=== PATIENT | female | born 1945 | race Caucasian/White ===

== ENCOUNTER 2018-04-17 15:20 | Emergency (ER) | payer OTHER ==
[2018-04-17 15:39] VITALS: BMI 26.7
--- NOTE | 2018-04-17 17:52 | PDOC ---
History of Present Illness - General History Source: Patient Exam Limitations: No Limitations - History of Present Illness Initial Comments: 04/17/18 18:10 The patient is a 72 year old female, with a significant past medical history of Afib, HTN, and Parkinsons, who presents to the emergency department with, hematuria and urgency. Patient notes seeing her PCP Tuesday at which time she had urgency and urinary incontinence and was given urology follow-up. Patient notes her hematuria has gotten worse, prompting her arrival. She denies recent fevers, chills, headache or dizziness. She denies recent nausea, vomit, diarrhea or constipation. She denies recent chest pain or shortness of breath. Allergies: Penicillins. Primary Care Physician: Dr. Keshawn Rush <Freida Mckeon - Last Filed: 04/17/18 18:09> <Mala Liao - Last Filed: 04/17/18 20:16> - General Chief Complaint: Rectal Bleed Stated Complaint: VAGINAL BLEEDING Time Seen by Provider: 04/17/18 17:35 Past History <Freida Mckeon - Last Filed: 04/17/18 18:09> - Past Medical History Cardiac Disorders: Yes (IRREGULAR HEART BEAT) COPD: No GI Disorders: Yes (constipation) HTN: Yes Lung CA: No - Surgical History Cardiac Surgery: No (ablation for A-fib 06/11/15) - Immunization History Immunization Up to Date: Yes - Suicide/Smoking/Psychosocial Hx Smoking History: Never smoked Have you smoked in the past 12 months: No Information on smoking cessation initiated: No Hx Alcohol Use: No Drug/Substance Use Hx: No Substance Use Type: None Hx Substance Use Treatment: No <Mala Liao - Last Filed: 04/17/18 20:16> - Past Medical History Allergies/Adverse Reactions: Allergies Allergy/AdvReac Type Severity Reaction Status Date / Time No Known Allergies Allergy Verified 07/20/15 14:45 Home Medications: Ambulatory Orders Metoprolol Tartrate [Lopressor] 50 mg PO BID #28 tablet 05/17/14 Rivaroxaban [Xarelto -] 20 mg PO DAILY #14 tablet 05/17/14 Flecainide Acetate [Flecainide Acetate -] 50 mg PO BID 03/27/15 Nifedipine [Nifedical Xl] 60 mg PO DAILY 03/27/15 Omeprazole [Prilosec] 20 mg PO BID 06/15/15 Phenazopyridine HCl [Pyridium -] 100 mg PO TID #6 tablet 04/17/18 Sulfamethoxazole/Trimethoprim [Bactrim Ds -] 1 tab PO BID #14 tablet 04/17/18 Abd/GI Specific PMHX - Complaint Specific PMHX Colitis: No Diverticulitis: No <Sanju Liaoa Emely - Last Filed: 04/17/18 20:16> Review of Systems - Review of Systems Able to Perform ROS?: Yes Comments:: 04/17/18 18:10 CONSTITUTIONAL: Absent: fever, no chills, no fatigue EYES: Absent: visual changes ENT: Absent: ear pain, no sore throat CARDIOVASCULAR: Absent: chest pain, no palpitations RESPIRATORY: Absent: cough, no SOB GI: Absent: abdominal pain, no nausea, no vomiting, no constipation, no diarrhea GENITOURINARY: Present: Hematuria. Suprapubic discomfort. MUSKULOSKELETAL: Absent: back pain, no arthralgia, no myalgia SKIN: Absent: rash NEURO: Absent: headache All Other Systems: Reviewed and Negative <Freida Mckeon - Last Filed: 04/17/18 18:09> *Physical Exam - Vital Signs Last Vital Signs Temp Pulse Resp BP Pulse Ox 98.1 F 73 16 174/82 H 96 04/17/18 15:37 04/17/18 15:37 04/17/18 15:37 04/17/18 15:37 04/17/18 15:37 - Physical Exam Comments: 04/17/18 18:10 GENERAL: Well developed, well nourished. Awake and alert. No acute distress. HEENT: Normocephalic, atraumatic. PERRLA, EOMI. No conjunctival pallor. Sclera are non- icteric. Moist mucous membranes. Oropharynx is clear. NECK: Supple. Full ROM. No JVD. Carotid pulses 2+ and symmetric, without bruits. No thyromegaly. No lymphadenopathy. +CARDIOVASCULAR: Irregularly irregular. No murmurs, rubs, or gallops. Distal pulses are 2+ and symmetric. PULMONARY: No evidence of respiratory distress. Lungs clear to auscultation bilaterally. No wheezing, rales or rhonchi. +ABDOMINAL: Mild suprapubic discomfort Soft. Non-distended. No rebound or guarding. No organomegaly. Normoactive bowel sounds. MUSCULOSKELETAL Normal range of motion at all joints. No bony deformities or tenderness. No CVA tenderness. EXTREMITIES: No cyanosis. No clubbing. No edema. No calf tenderness. SKIN: Warm and dry. Normal capillary refill. No rashes. No jaundice. NEUROLOGICAL: Alert, awake, appropriate. Cranial nerves 2-12 intact. No deficits to light touch and temperature in face, upper extremities and lower extremities. No motor deficits in the in face, upper extremities and lower extremities. Normoreflexic in the upper and lower extremities. Normal speech. Toes are down- going bilaterally. Gait is normal without ataxia. PSYCHIATRIC: Cooperative. Good eye contact. Appropriate mood and affect. <Freida Mckeon - Last Filed: 04/17/18 18:09> - Vital Signs Last Vital Signs Temp Pulse Resp BP Pulse Ox 98.1 F 73 16 174/82 H 96 04/17/18 15:37 04/17/18 15:37 04/17/18 15:37 04/17/18 15:37 04/17/18 15:37 <Mala Liao - Last Filed: 04/17/18 20:16> Moderate Sedation - Procedure Monitoring Vital Signs: Procedure Monitoring Vital Signs Temperature 98.1 F 04/17/18 15:37 Pulse Rate 73 04/17/18 15:37 Respiratory Rate 16 04/17/18 15:37 Blood Pressure 174/82 H 04/17/18 15:37 O2 Sat by Pulse Oximetry (%) 96 04/17/18 15:37 <Freida Mckeon - Last Filed: 04/17/18 18:09> - Procedure Monitoring Vital Signs: Procedure Monitoring Vital Signs Temperature 98.1 F 04/17/18 15:37 Pulse Rate 73 04/17/18 15:37 Respiratory Rate 16 04/17/18 15:37 Blood Pressure 174/82 H 04/17/18 15:37 O2 Sat by Pulse Oximetry (%) 96 04/17/18 15:37 <Mala Liao - Last Filed: 04/17/18 20:16> ED Treatment Course - LABORATORY CBC & Chemistry Diagram: 04/17/18 18:27 04/17/18 18:27 <Mala Liao - Last Filed: 04/17/18 20:16> Medical Decision Making - Medical Decision Making 04/17/18 19:09 this 72 yo female has had some intermittent dysuria,suprapubic discomfort recently and noted some blood in urine -she already saw her PCP on Tuesday for this and was referred to a urologist but her symptoms bothered d her and she came here 04/17/18 19:17 no fever,no vomiting reviewed the labs and she does not have pyelonephritis, normal cbc and chemistry pt given pyrdium and bactrim and told to keep her urology appt <Mala Liao - Last Filed: 04/17/18 20:16> *DC/Admit/Observation/Transfer - Attestations Scribe Attestion: 04/17/18 18:11 Documentation prepared by Freida Mckeon, acting as medical photographer for Mala Liao MD. <Freida Mckeon - Last Filed: 04/17/18 18:09> <Mala Liao - Last Filed: 04/17/18 20:16> Diagnosis at time of Disposition: Dysuria Hematuria Qualifiers: Hematuria type: unspecified type Qualified Code(s): R31.9 - Hematuria, unspecified - Discharge Dispostion Disposition: HOME Condition at time of disposition: Stable - Prescriptions Prescriptions: Phenazopyridine HCl [Pyridium -] 100 mg PO TID #6 tablet Sulfamethoxazole/Trimethoprim [Bactrim Ds -] 1 tab PO BID #14 tablet - Referrals Referrals: Keshawn Rush MD, MD [Primary Care Provider] - - Patient Instructions Printed Discharge Instructions: DI for Hematuria, DI for Dysuria -- Adult Additional Instructions: 1. pick up operator your medications at [facility] at [facility] 2. PLEASE KEEP YOUR APPOINTMENT WITH THE UROLOGIST YOU HAD BEEN REFERRED TO - Post Discharge Activity
[2018-04-17 18:32] LABS: URINE APPEARANCE CLEAR; URINE BILIRUBIN NEGATIVE (<2.0 mg/dL); URINE COLOR YELLOW; URINE GLUCOSE (UA) NEGATIVE (NEGATIVE); URINE KETONE NEGATIVE (NEGATIVE); URINE LEUK ESTERASE NEGATIVE (NEGATIVE); URINE NITRITE NEGATIVE (NEGATIVE); URINE PROTEIN NEGATIVE (NEGATIVE); URINE UROBILINOGEN NEGATIVE mg/dL (0.2-1.0)
[2018-04-17 18:38] LABS: URINE MUCUS RARE
[2018-04-17 18:53] LABS: BASO % 0.6 % (0-2.0); HEMATOCRIT 39.8 % (32.4-45.2); HEMOGLOBIN 13.7 GM/dL (10.7-15.3); LYMPH % 29.6 % (8-40); MCH 31.1 pg (25.7-33.7); MCHC 34.3 g/dl (32.0-36.0); MEAN CELL VOLUME 90.5 fl (80-96); MEAN PLT VOLUME 9.9 fl (7.5-11.1); MONO % 7.8 % (3.8-10.2); PLATELET COUNT 187 K/MM3 (134-434); RDW 13.1 % (11.6-15.6); WHITE BLOOD COUNT 5.3 K/mm3 (4.0-10.0)
[2018-04-17 19:05] LABS: INR 1.36 (0.83-1.09); PROTHROMBIN TIME (PATIENT) 16.1 SEC (9.7-13.0)
--- NOTE | 2018-04-17 19:16 | PDOC ---
History of Present Illness - General Chief Complaint: Rectal Bleed Stated Complaint: VAGINAL BLEEDING Time Seen by Provider: 04/17/18 17:35 Past History - Past Medical History Allergies/Adverse Reactions: Allergies Allergy/AdvReac Type Severity Reaction Status Date / Time No Known Allergies Allergy Verified 07/20/15 14:45 Home Medications: Ambulatory Orders Metoprolol Tartrate [Lopressor] 50 mg PO BID #28 tablet 05/17/14 Rivaroxaban [Xarelto -] 20 mg PO DAILY #14 tablet 05/17/14 Flecainide Acetate [Flecainide Acetate -] 50 mg PO BID 03/27/15 Nifedipine [Nifedical Xl] 60 mg PO DAILY 03/27/15 Omeprazole [Prilosec] 20 mg PO BID 06/15/15 Cardiac Disorders: Yes (IRREGULAR HEART BEAT) COPD: No GI Disorders: Yes (constipation) HTN: Yes Lung CA: No - Surgical History Cardiac Surgery: No (ablation for A-fib 06/11/15) - Immunization History Immunization Up to Date: Yes - Suicide/Smoking/Psychosocial Hx Smoking History: Never smoked Have you smoked in the past 12 months: No Information on smoking cessation initiated: No Hx Alcohol Use: No Drug/Substance Use Hx: No Substance Use Type: None Hx Substance Use Treatment: No Abd/GI Specific PMHX - Complaint Specific PMHX Colitis: No Diverticulitis: No *Physical Exam - Vital Signs Last Vital Signs Temp Pulse Resp BP Pulse Ox 98.1 F 73 16 174/82 H 96 04/17/18 15:37 04/17/18 15:37 04/17/18 15:37 04/17/18 15:37 04/17/18 15:37 Moderate Sedation - Procedure Monitoring Vital Signs: Procedure Monitoring Vital Signs Temperature 98.1 F 04/17/18 15:37 Pulse Rate 73 04/17/18 15:37 Respiratory Rate 16 04/17/18 15:37 Blood Pressure 174/82 H 04/17/18 15:37 O2 Sat by Pulse Oximetry (%) 96 04/17/18 15:37 ED Treatment Course - LABORATORY CBC & Chemistry Diagram: 04/17/18 18:27 04/17/18 18:27 - ADDITIONAL ORDERS Additional order review: Laboratory Results 04/17/18 04/17/18 18:03 18:00 PT with INR 16.10 H INR 1.36 H Urine Color Yellow Urine Appearance Clear Urine pH 7.0 Ur Specific [place] 1.014 Urine Protein Negative Urine Glucose (UA) Negative Urine Ketones Negative Urine Blood 1+ H Urine Nitrite Negative Urine Bilirubin Negative Urine Urobilinogen Negative Ur Leukocyte Esterase Negative Urine WBC (Auto) 3 Urine RBC (Auto) 3 Urine Mucus Rare 04/17/18 18:27 RBC 4.40 MCV 90.5 MCHC 34.3 RDW 13.1 MPV 9.9 Neutrophils % 62.0 Lymphocytes % 29.6 D Monocytes % 7.8 Eosinophils % 0.0 Basophils % 0.6 *DC/Admit/Observation/Transfer - Discharge Dispostion Condition at time of disposition: Stable - Referrals Referrals: Keshawn Rush MD, MD [Primary Care Provider] - - Patient Instructions - Post Discharge Activity
[2018-04-17 19:22] LABS: ALBUMIN 3.7 g/dl (3.4-5.0); ALK PHOS 93 U/L (45-117); ANION GAP 7 MMOL/L (8-16); BILIRUBIN,TOTAL 0.5 mg/dL (0.2-1); BLOOD UREA NITROGEN 17 mg/dL (7-18); CALCIUM 8.9 mg/dL (8.5-10.1); CHLORIDE 108 mmol/L (98-107); CO2 28 mmol/L (21-32); CREATININE 0.8 mg/dL (0.55-1.3); GLUCOSE,RANDOM 97 mg/dL (74-106); POTASSIUM 3.7 mmol/L (3.5-5.1); SGOT/AST 16 U/L (15-37); SGPT/ALT 14 U/L (13-61); SODIUM 143 mmol/L (136-145); TOT PROT 7.5 g/dl (6.4-8.2)
[2018-04-17] MEDS ORDERED: SULFAMETHOXAZOLE/TRIMETHOPRIM 800MG/160MG D.S. TABLET PO ONE (20:09)
[2018-04-17] MEDS ORDERED: PHENAZOPYRIDINE HCL 100 MG TABLET (FP) PO ONE (20:09)
[2018-04-17] MEDS ORDERED: SULFAMETHOXAZOLE/TRIMETHOPRIM 800MG/160MG D.S. TABLET ONE (20:13)
[2018-04-17] MEDS ORDERED: PHENAZOPYRIDINE HCL 100 MG TABLET (FP) ONE (20:13)
[2018-04-17 20:39] VITALS: BP 145/78; PULSE 88; TEMP 98.5
== END 2018-04-17 20:39 | disposition home or self-care (01) ==
LOC: JER 15:20
DX: R30.0 Dysuria (principal); R31.9 Hematuria, unspecified; I10 Essential (primary) hypertension; I48.91 Unspecified atrial fibrillation; Z79.01 Long term (current) use of anticoagulants; G20 Parkinson's disease
CPT/HCPCS: 36415; 80053; 81003; 81015; 85025; 85610; 86850; 86900; 86901; 87086; 99282-25

== ENCOUNTER 2018-06-22 12:10 | Day surgery (SDC) | payer OTHER ==
[2018-06-21 16:54] VITALS: BMI 27.3
--- NOTE | 2018-06-22 14:47 | HP ---
History & Physical Update - History History: No Change - Physical Physical: No Change - Assessment Assessment: No Change - Plan Plan: No Change
[2018-06-22] MEDS ORDERED: ACETAMINOPHEN 1000 MG/100 ML VIAL (NON FORMULARY) IVPB ONE (14:49)
[2018-06-22] MEDS ORDERED: LIDOCAINE HCL/PF 2% SDV 5ML VIAL ONE (14:59)
[2018-06-22] MEDS ORDERED: DEXTROSE 5%-0.45% SALINE 1,000 ML IV SCH (15:00)
[2018-06-22] MEDS ORDERED: ceFAZolin SODIUM 1 GM VIAL IVPB ONE (15:15)
[2018-06-22] MEDS ORDERED: oxyCODONE HCL 5 MG TABLET PO PRN ×2 (16:00)
[2018-06-22] MEDS ORDERED: LACTATED RINGERS SOLUTION 1,000 ML IV SCH (16:00)
[2018-06-22] MEDS ORDERED: ONDANSETRON 4 MG/2 ML VIAL IVPUSH PRN (16:00)
[2018-06-22] MEDS ORDERED: ACETAMINOPHEN INJECTION 100 ML IVPB ONE (16:10)
[2018-06-22] MEDS ORDERED: IBUPROFEN 800 MG/8 ML IJ IVPB SCH (18:00)
[2018-06-22 20:38] VITALS: TEMP 97.5
[2018-06-22 20:46] VITALS: BP 117/74; PULSE 58
--- NOTE | 2018-06-23 14:22 | OP ---
DATE OF OPERATION: 06/22/2018 PREOPERATIVE DIAGNOSIS: Urethral prolapse and stress urinary incontinence. POSTOPERATIVE DIAGNOSIS: Urethral prolapse and stress urinary incontinence. PROCEDURE: Excision of prolapsed urethra and repair and placement of suburethral sling and cystoscopy. ANESTHESIA: General. SPECIMEN: Urethra. DRAINS: Durant catheter. ESTIMATED BLOOD LOSS: 10 mL PREOPERATIVE INDICATIONS: Patient is a 72-year-old female with a 2-cm area of prolapsed urethra. She also has severe stress urinary incontinence. DESCRIPTION OF PROCEDURE: The patient was brought to the OR and placed on the table in a supine position. Given general anesthesia and IV antibiotics and placed in the modified lithotomy position. A time-out was performed. On exam, she had a 2-cm length of prolapsed urethra. Cystoscopy was performed. The bladder, otherwise, appeared to be okay. There also was a full 3-cm length of [place] urethra. Both ureteral orifices were visualized and cannulated. There was no involvement of the ureter or the ureteral orifice in the prolapsed urethra. The external portion of the urethra was excised and sent off for pathological diagnosis. The remaining urethral mucosa was re-opposed using 3-0 Vicryl suture with good control of hemostasis. A suburethral sling was then placed. Pitressin was injected into the vaginal mucosa underlying the middle third of the urethra. Incision was made, and the vaginal mucosa was sharply dissected off the periurethral tissues in a lateral fashion. Using trocars, a mini sling was placed under fingertip control from the vaginal incision to the obturator canal. No evidence of button holing of the vaginal mucosa was observed. Cystoscopy was again performed. No evidence of any perforation of the bladder. The sling was then placed flat against the urethra without tension, and the tensioning suture was removed. The vaginal mucosa was then closed using 2-0 Vicryl suture. Good hemostasis was observed. The Durant catheter was left in place. The patient was woken up. Jude [id number]
--- NOTE | 2018-06-27 13:30 | PATH ---
Surgical Pathology Report Patient Name: YOLANDA BERNARD [facility]. Rec. #: [id number] /Age/Gender: 1945 (Age: 72) / F Account: [id number] Location: [facility] Taken: 06/22/2018 Received: 06/23/2018 Reported: 06/27/2018 Physicians: Keshawn Escobar M.D. Specimen(s) Received URETHRA BIOPSY Clinical History Urethral caruncle, mixed incontinence Final Diagnosis URETHRAL PROLAPSE, BIOPSY: POLYPOID MUCOSAL TISSUE SHOWING MIXED HYPERPLASTIC UROTHELIAL AND SQUAMOUS LINING, OVERLYING EDEMATOUS, INFLAMED, AND VASCULAR STROMA. INVAGINATIONS OF UROTHELIUM IN THE STROMA SHOWING CYSTIC AND GLANDULAR LUMINAL SPACES WITH FOCAL INTESTINAL METAPLASIA. NEGATIVE FOR MALIGNANCY. Electronically Signed Gibran Freeman M.D. Gross Description Received in formalin labeled "urethra prolapse," are 2 gotti portions of mucosal tissue measuring 1.8 x 1.3 x 0.8 cm and 2.3 x 2.1 x 0.8 cm. [employer] sections are submitted in one cassette. /06/23/2018 [facility]06/23/2018
== END 2018-06-22 20:00 | disposition home or self-care (01) ==
LOC: JASU-SURG 12:10
PROVIDERS: ATTEND Urology
PROC: 0TSD0ZZ Reposition Urethra, Open Approach (ICD-10-PCS; principal; 2018-06-22 14:00)
PROC: 0TBD7ZZ Excision of Urethra, Via Natural or Artificial Opening (ICD-10-PCS; 2018-06-22 14:00)
DX: N39.46 Mixed incontinence (principal); N36.2 Urethral caruncle; N81.0 Urethrocele
CPT/HCPCS: 52224; 57288; C1771; 88305-TC; 94760; J0131

== ENCOUNTER 2020-04-03 15:32 | Inpatient (IN) | payer OTHER ==
[2020-04-03 17:18] LABS: HEMOGLOBIN 12.9 GM/dL (10.7-15.3)
[2020-04-03 17:27] LABS: BASO % 0.4 % (0-2.0); EOS % 0.1 % (0-4.5); HEMATOCRIT 37.4 % (32.4-45.2); LYMPH % 26.3 % (8-40); MCH 30.6 pg (25.7-33.7); MCHC 34.6 g/dl (32.0-36.0); MEAN CELL VOLUME 88.4 fl (80-96); MEAN PLT VOLUME 11.4 fl (7.5-11.1); MONO % 6.6 % (3.8-10.2); NEUT % 66.6 % (42.8-82.8); PLATELET COUNT 116 K/MM3 (134-434); RBC 4.23 M/mm3 (3.60-5.2); RDW 13.7 % (11.6-15.6); WHITE BLOOD COUNT 5.5 K/mm3 (4.0-10.0)
[2020-04-03 17:28] LABS: POTASSIUM 3.5 mmol/L (3.5-5.1)
[2020-04-03 17:30] LABS: CALCIUM 8.2 mg/dL (8.5-10.1)
[2020-04-03 17:31] LABS: ALBUMIN 3.3 g/dl (3.4-5.0)
[2020-04-03 17:34] LABS: CREATININE 0.8 mg/dL (0.55-1.3)
[2020-04-03 17:35] LABS: BILIRUBIN,TOTAL 0.8 mg/dL (0.2-1)
[2020-04-03 17:39] LABS: N-TERMINAL BNP 3040.9 pg/ml (5-125)
[2020-04-03] MEDS ORDERED: ASPIRIN 81 MG CHEWABLE TABLETS PO ONE (18:48)
[2020-04-03] MEDS ORDERED: CEFTRIAXONE 1,000 MG in DEXTROSE 5%-WATER - 50 ML IVPB ONE (19:00)
[2020-04-03] MEDS ORDERED: AZITHROMYCIN IVPB 500 MG in DEXTROSE 5%-WATER - 250 ML IVPB ONE (19:02)
[2020-04-03] MEDS ORDERED: AZITHROMYCIN IVPB 500 MG/250 ML BAG IVPB ONE (19:25)
[2020-04-03] MEDS ORDERED: CEFTRIAXONE 1 GM/50 ML BAG ONE (19:25)
[2020-04-03] MEDS ORDERED: ASPIRIN 81 MG CHEWABLE TABLETS ONE (19:25)
[2020-04-04 06:17] LABS: BASO % 0.5 % (0-2.0); HEMATOCRIT 37.7 % (32.4-45.2); HEMOGLOBIN 12.8 GM/dL (10.7-15.3); LYMPH % 32.2 % (8-40); MCH 30.4 pg (25.7-33.7); MEAN CELL VOLUME 89.2 fl (80-96); MONO % 7.3 % (3.8-10.2); PLATELET COUNT 107 K/MM3 (134-434); RBC 4.22 M/mm3 (3.60-5.2); RDW 13.3 % (11.6-15.6); WHITE BLOOD COUNT 4.2 K/mm3 (4.0-10.0)
[2020-04-04 06:36] LABS: POTASSIUM 3.7 mmol/L (3.5-5.1)
[2020-04-04 06:39] LABS: MAGNESIUM 1.4 mg/dL (1.8-2.4)
[2020-04-04 06:40] LABS: BLOOD UREA NITROGEN 11.8 mg/dL (7-18)
[2020-04-04 06:42] LABS: CREATININE 0.6 mg/dL (0.55-1.3)
[2020-04-04 06:43] LABS: PHOSPHOROUS 2.4 mg/dL (2.5-4.9); TOT PROT 6.4 g/dl (6.4-8.2)
[2020-04-04 06:45] LABS: BILIRUBIN,TOTAL 0.6 mg/dL (0.2-1)
[2020-04-04] MEDS ORDERED: CEFTRIAXONE 1 GM in DEXTROSE 5%-WATER - 50 ML IVPB ONE (10:00)
[2020-04-04] MEDS ORDERED: AZITHROMYCIN IVPB 500 MG/250 ML BAG IVPB SCH (10:00)
[2020-04-04] MEDS ORDERED: FUROSEMIDE 40 MG/4 ML INJECTABLE VIAL IVPUSH SCH (10:00)
[2020-04-04] MEDS ORDERED: METOPROLOL TARTRATE 50 MG TABLET (FP) ONE (10:14)
[2020-04-04] MEDS ORDERED: CEFTRIAXONE 1 GM/50 ML BAG ONE (10:15)
[2020-04-04] MEDS ORDERED: AZITHROMYCIN IVPB 500 MG/250 ML BAG IVPB ONE (10:15)
[2020-04-04] MEDS ORDERED: FUROSEMIDE 40 MG/4 ML INJECTABLE VIAL ONE (10:15)
[2020-04-04] MEDS: NIFEdipine E.R 60 MG TABLET PO SCH (10:38)
[2020-04-04] MEDS: METOPROLOL TARTRATE 50 MG TABLET (FP) PO SCH ×2 (10:38→22:11)
[2020-04-04] MEDS ORDERED: NAPH,MB-DB/K PH,MBDB POWDER PACKET PO ONE (11:53)
[2020-04-04] MEDS ORDERED: MAGNESIUM OXIDE 400 MG TABLET (FP) PO ONE (11:53)
[2020-04-04] MEDS ORDERED: NAPH,MB-DB/K PH,MBDB POWDER PACKET ONE (13:15)
[2020-04-04] MEDS ORDERED: MAGNESIUM OXIDE 400 MG TABLET (FP) ONE (13:15)
[2020-04-04] MEDS ORDERED: ACETAMINOPHEN 325 MG TABLET (FP) ONE (14:20)
[2020-04-04] MEDS: CARBIDOP 37.5MG/LEVODOPA 150MG/ENTACAPONE 200MG TABLET PO SCH ×2 (14:30→22:40)
[2020-04-04] MEDS ORDERED: ACETAMINOPHEN 325 MG TABLET (FP) PO PRN (16:22)
[2020-04-04] MEDS: RIVAROXABAN 20 MG TABLET PO SCH (21:12)
[2020-04-05] MEDS: CARBIDOP 37.5MG/LEVODOPA 150MG/ENTACAPONE 200MG TABLET PO SCH ×3 (06:37→22:39)
[2020-04-05 08:13] LABS: EPI CELLS >36 /uL (0-25.1); HYALINE CASTS 4 /uL (0-3.1); URINE APPEARANCE CLOUDY; URINE BACTERIA 49 /uL (0-1359); URINE BILIRUBIN 1+ (NEGATIVE); URINE COLOR DK YELLOW; URINE GLUCOSE (UA) NEGATIVE (NEGATIVE); URINE KETONE NEGATIVE (NEGATIVE); URINE LEUK ESTERASE 1+ (NEGATIVE); URINE NITRITE NEGATIVE (NEGATIVE); URINE PROTEIN 2+ (NEGATIVE); URINE RBC 15037 /uL (0-23.9); URINE UROBILINOGEN 0.2 mg/dL (0.2-1.0); URINE WBC 128 /uL (0-25.8)
[2020-04-05] MEDS ORDERED: METOPROLOL TARTRATE 50 MG TABLET (FP) ONE (10:22)
[2020-04-05] MEDS ORDERED: NIFEdipine E.R. 30 MG TABLET ONE (10:23)
[2020-04-05] MEDS ORDERED: FUROSEMIDE 40 MG/4 ML INJECTABLE VIAL ONE (10:23)
[2020-04-05] MEDS ORDERED: CEFTRIAXONE 1 GM/50 ML BAG ONE (10:26)
[2020-04-05] MEDS: CEFTRIAXONE 1 GM in DEXTROSE 5%-WATER - 50 ML IVPB SCH (10:35)
[2020-04-05] MEDS: FUROSEMIDE 40 MG/4 ML INJECTABLE VIAL IVPUSH SCH (10:35)
[2020-04-05] MEDS: METOPROLOL TARTRATE 50 MG TABLET (FP) PO SCH ×2 (10:35→22:39)
[2020-04-05] MEDS: NIFEdipine E.R 60 MG TABLET PO SCH (10:35)
[2020-04-05 12:14] LABS: POTASSIUM 3.4 mmol/L (3.5-5.1)
[2020-04-05 12:21] LABS: BLOOD UREA NITROGEN 14.9 mg/dL (7-18); CALCIUM 8.3 mg/dL (8.5-10.1)
[2020-04-05 12:22] LABS: MAGNESIUM 1.4 mg/dL (1.8-2.4)
[2020-04-05 12:24] LABS: CREATININE 0.8 mg/dL (0.55-1.3)
[2020-04-05 12:26] LABS: BILIRUBIN,TOTAL 1.2 mg/dL (0.2-1); TOT PROT 6.9 g/dl (6.4-8.2)
[2020-04-05] MEDS ORDERED: MAGNESIUM SULFATE IN WATER 2 GM/50 ML IVPB IVPB ONE (13:36)
[2020-04-05] MEDS ORDERED: NAPH,MB-DB/K PH,MBDB POWDER PACKET ONE (13:37)
[2020-04-05] MEDS ORDERED: MAGNESIUM SULF 50% (8.12 MEQ/2 ML-1 GM VIAL) IVPB ONE (13:45)
[2020-04-05] MEDS: NAPH,MB-DB/K PH,MBDB POWDER PACKET PO SCH (13:50)
[2020-04-05] MEDS ORDERED: PT OWN MED DRAWER 7, Y5N ONE (16:28)
[2020-04-05] MEDS: RIVAROXABAN 20 MG TABLET PO SCH (17:48)
[2020-04-05 18:47] VITALS: BMI 24.0
[2020-04-06] MEDS: CARBIDOP 37.5MG/LEVODOPA 150MG/ENTACAPONE 200MG TABLET PO SCH ×4 (06:01→22:11)
[2020-04-06 08:45] LABS: BLOOD UREA NITROGEN 18.6 mg/dL (7-18); CALCIUM 8.1 mg/dL (8.5-10.1); MAGNESIUM 1.8 mg/dL (1.8-2.4); POTASSIUM 3.5 mmol/L (3.5-5.1)
[2020-04-06 08:49] LABS: CREATININE 0.7 mg/dL (0.55-1.3); PHOSPHOROUS 2.7 mg/dL (2.5-4.9)
[2020-04-06] MEDS ORDERED: cefTRIAXone SODIUM 1 GM VIAL ONE (09:00)
[2020-04-06] MEDS ORDERED: DEXTROSE 5%-WATER - 50 ML IVPB ONE (09:00)
[2020-04-06] MEDS: CEFTRIAXONE 1 GM in DEXTROSE 5%-WATER - 50 ML IVPB SCH (09:28)
[2020-04-06] MEDS: METOPROLOL TARTRATE 50 MG TABLET (FP) PO SCH ×2 (09:28→22:11)
[2020-04-06] MEDS: FUROSEMIDE 40 MG/4 ML INJECTABLE VIAL IVPUSH SCH (09:28)
[2020-04-06] MEDS: NIFEdipine E.R 60 MG TABLET PO SCH (09:28)
[2020-04-06] MEDS: NAPH,MB-DB/K PH,MBDB POWDER PACKET PO SCH (09:28)
[2020-04-06] MEDS: DEXAMETHASONE SOD PHOSPHATE 4 MG/1 ML VIAL IVPUSH SCH (09:28)
[2020-04-06] MEDS: BUDESONIDE/FORMETEROL FUMARATE 80/4.5 mcg INHALER IH SCH ×2 (09:29→22:17)
[2020-04-06] MEDS: BUDESONIDE/FORMETEROL FUMARATE 160/4.5 mcg INHALER IH SCH ×2 (11:58→22:11)
[2020-04-06] MEDS ORDERED: REMDESIVIR 200 MG in SODIUM CHLORIDE 210 ML IVPB ONE (13:00)
[2020-04-06] MEDS: RIVAROXABAN 20 MG TABLET PO SCH (17:45)
[2020-04-07] MEDS: CARBIDOP 37.5MG/LEVODOPA 150MG/ENTACAPONE 200MG TABLET PO SCH ×3 (06:31→22:31)
[2020-04-07 07:33] LABS: BASO % 0.2 % (0-2.0); HEMATOCRIT 37.2 % (32.4-45.2); LYMPH % 11.9 % (8-40); MCH 31.9 pg (25.7-33.7); MCHC 34.8 g/dl (32.0-36.0); MEAN CELL VOLUME 91.8 fl (80-96); MEAN PLT VOLUME 11.4 fl (7.5-11.1); MONO % 1.6 % (3.8-10.2); NEUT % 86.3 % (42.8-82.8); PLATELET COUNT 191 K/MM3 (134-434); RBC 4.06 M/mm3 (3.60-5.2); RDW 12.9 % (11.6-15.6); WHITE BLOOD COUNT 6.2 K/mm3 (4.0-10.0)
[2020-04-07 08:05] LABS: POTASSIUM 3.7 mmol/L (3.5-5.1)
[2020-04-07 08:19] LABS: ALBUMIN 2.6 g/dl (3.4-5.0)
[2020-04-07 08:20] LABS: CALCIUM 8.6 mg/dL (8.5-10.1)
[2020-04-07 08:21] LABS: MAGNESIUM 1.8 mg/dL (1.8-2.4)
[2020-04-07 08:24] LABS: BLOOD UREA NITROGEN 29.4 mg/dL (7-18); TOT PROT 6.7 g/dl (6.4-8.2)
[2020-04-07 08:25] LABS: CREATININE 0.6 mg/dL (0.55-1.3)
[2020-04-07 08:28] LABS: BILIRUBIN,TOTAL 0.8 mg/dL (0.2-1)
[2020-04-07] MEDS: FUROSEMIDE 40 MG/4 ML INJECTABLE VIAL IVPUSH SCH (09:47)
[2020-04-07] MEDS: BUDESONIDE/FORMETEROL FUMARATE 80/4.5 mcg INHALER IH SCH ×2 (09:50→22:31)
[2020-04-07] MEDS: NIFEdipine E.R 60 MG TABLET PO SCH (09:50)
[2020-04-07] MEDS: METOPROLOL TARTRATE 50 MG TABLET (FP) PO SCH ×2 (09:50→22:30)
[2020-04-07] MEDS: DEXAMETHASONE SOD PHOSPHATE 4 MG/1 ML VIAL IVPUSH SCH (09:50)
[2020-04-07] MEDS: NAPH,MB-DB/K PH,MBDB POWDER PACKET PO SCH (09:50)
[2020-04-07] MEDS: BUDESONIDE/FORMETEROL FUMARATE 160/4.5 mcg INHALER IH SCH ×2 (09:50→22:31)
[2020-04-07] MEDS: PANTOPRAZOLE SODIUM 40 MG VIAL IVPUSH SCH (11:03)
[2020-04-07] MEDS: REMDESIVIR 100 MG in SODIUM CHLORIDE 230 ML IVPB SCH (12:03)
[2020-04-07] MEDS ORDERED: PT OWN MED DRAWER 7, Y5N ONE ×2 (12:57→21:28)
[2020-04-07] MEDS: RIVAROXABAN 20 MG TABLET PO SCH (17:10)
[2020-04-08] MEDS: CARBIDOP 37.5MG/LEVODOPA 150MG/ENTACAPONE 200MG TABLET PO SCH ×3 (06:16→21:48)
[2020-04-08 07:40] LABS: BASO % 0.5 % (0-2.0); HEMOGLOBIN 13.4 GM/dL (10.7-15.3); LYMPH % 11.3 % (8-40); MCH 31.2 pg (25.7-33.7); MCHC 34.3 g/dl (32.0-36.0); MEAN CELL VOLUME 90.8 fl (80-96); MEAN PLT VOLUME 11.2 fl (7.5-11.1); MONO % 2.4 % (3.8-10.2); NEUT % 85.8 % (42.8-82.8); WHITE BLOOD COUNT 8.3 K/mm3 (4.0-10.0)
[2020-04-08 07:48] LABS: POTASSIUM 3.9 mmol/L (3.5-5.1)
[2020-04-08 08:18] LABS: ALBUMIN 2.6 g/dl (3.4-5.0); BLOOD UREA NITROGEN 38.9 mg/dL (7-18); CALCIUM 8.8 mg/dL (8.5-10.1); MAGNESIUM 1.9 mg/dL (1.8-2.4)
[2020-04-08 08:21] LABS: BILIRUBIN,TOTAL 0.6 mg/dL (0.2-1); CREATININE 0.7 mg/dL (0.55-1.3); TOT PROT 6.8 g/dl (6.4-8.2)
[2020-04-08 08:22] LABS: PHOSPHOROUS 3.3 mg/dL (2.5-4.9)
[2020-04-08] MEDS: PANTOPRAZOLE SODIUM 40 MG VIAL IVPUSH SCH (09:09)
[2020-04-08] MEDS: NIFEdipine E.R 60 MG TABLET PO SCH (09:09)
[2020-04-08] MEDS: DEXAMETHASONE SOD PHOSPHATE 4 MG/1 ML VIAL IVPUSH SCH (09:09)
[2020-04-08] MEDS: METOPROLOL TARTRATE 50 MG TABLET (FP) PO SCH ×2 (09:09→21:18)
[2020-04-08] MEDS: NAPH,MB-DB/K PH,MBDB POWDER PACKET PO SCH (09:09)
[2020-04-08] MEDS: BUDESONIDE/FORMETEROL FUMARATE 80/4.5 mcg INHALER IH SCH (09:10)
[2020-04-08] MEDS: BUDESONIDE/FORMETEROL FUMARATE 160/4.5 mcg INHALER IH SCH ×2 (09:10→21:48)
[2020-04-08 10:24] LABS: PLATELET COUNT 247 K/MM3 (134-434)
[2020-04-08] MEDS: REMDESIVIR 100 MG in SODIUM CHLORIDE 230 ML IVPB SCH (12:52)
[2020-04-08] MEDS ORDERED: PT OWN MED DRAWER 7, Y5N ONE ×2 (13:34→20:02)
[2020-04-08] MEDS: RIVAROXABAN 20 MG TABLET PO SCH (17:13)
[2020-04-09] MEDS: CARBIDOP 37.5MG/LEVODOPA 150MG/ENTACAPONE 200MG TABLET PO SCH ×3 (06:55→21:13)
[2020-04-09] MEDS ORDERED: REMDESIVIR 100 MG in SODIUM CHLORIDE 230 ML IVPB SCH (08:00)
[2020-04-09 09:27] LABS: BASO % 0.3 % (0-2.0); HEMOGLOBIN 13.9 GM/dL (10.7-15.3); LYMPH % 13.5 % (8-40); MCH 31.4 pg (25.7-33.7); MCHC 34.8 g/dl (32.0-36.0); MEAN CELL VOLUME 90.4 fl (80-96); MONO % 3.7 % (3.8-10.2); NEUT % 82.5 % (42.8-82.8); PLATELET COUNT 270 K/MM3 (134-434); RBC 4.42 M/mm3 (3.60-5.2); RDW 13.2 % (11.6-15.6); WHITE BLOOD COUNT 7.2 K/mm3 (4.0-10.0)
[2020-04-09 09:52] LABS: POTASSIUM 3.8 mmol/L (3.5-5.1)
[2020-04-09 10:19] LABS: CALCIUM 8.4 mg/dL (8.5-10.1)
[2020-04-09 10:20] LABS: BLOOD UREA NITROGEN 31.2 mg/dL (7-18); CREATININE 0.6 mg/dL (0.55-1.3); MAGNESIUM 1.8 mg/dL (1.8-2.4); PHOSPHOROUS 2.9 mg/dL (2.5-4.9)
[2020-04-09 10:22] LABS: ALBUMIN 2.5 g/dl (3.4-5.0); TOT PROT 6.4 g/dl (6.4-8.2)
[2020-04-09 10:27] LABS: BILIRUBIN,TOTAL 0.5 mg/dL (0.2-1)
[2020-04-09] MEDS: NAPH,MB-DB/K PH,MBDB POWDER PACKET PO SCH (10:39)
[2020-04-09] MEDS: PANTOPRAZOLE SODIUM 40 MG VIAL IVPUSH SCH (10:39)
[2020-04-09] MEDS: BUDESONIDE/FORMETEROL FUMARATE 160/4.5 mcg INHALER IH SCH ×2 (10:39→21:13)
[2020-04-09] MEDS: DEXAMETHASONE SOD PHOSPHATE 4 MG/1 ML VIAL IVPUSH SCH (10:39)
[2020-04-09] MEDS: NIFEdipine E.R 60 MG TABLET PO SCH (10:39)
[2020-04-09] MEDS: METOPROLOL TARTRATE 50 MG TABLET (FP) PO SCH ×2 (10:39→21:13)
[2020-04-09] MEDS ORDERED: PT OWN MED DRAWER 7, Y5N ONE ×4 (12:18→20:08)
[2020-04-09] MEDS: REMDESIVIR 100 MG in SODIUM CHLORIDE 230 ML IVPB SCH (13:17)
[2020-04-09] MEDS: RIVAROXABAN 20 MG TABLET PO SCH (18:04)
[2020-04-10] MEDS: CARBIDOP 37.5MG/LEVODOPA 150MG/ENTACAPONE 200MG TABLET PO SCH ×2 (06:37→14:45)
[2020-04-10] MEDS ORDERED: REMDESIVIR 100 MG in SODIUM CHLORIDE 230 ML IVPB SCH (08:00)
[2020-04-10] MEDS: BUDESONIDE/FORMETEROL FUMARATE 160/4.5 mcg INHALER IH SCH (09:37)
[2020-04-10] MEDS: PANTOPRAZOLE SODIUM 40 MG VIAL IVPUSH SCH (09:37)
[2020-04-10] MEDS: NAPH,MB-DB/K PH,MBDB POWDER PACKET PO SCH (09:37)
[2020-04-10] MEDS: NIFEdipine E.R 60 MG TABLET PO SCH (09:37)
[2020-04-10] MEDS: METOPROLOL TARTRATE 50 MG TABLET (FP) PO SCH (09:37)
[2020-04-10] MEDS: DEXAMETHASONE SOD PHOSPHATE 4 MG/1 ML VIAL IVPUSH SCH (09:37)
[2020-04-10] MEDS ORDERED: PT OWN MED DRAWER 7, Y5N ONE (14:12)
[2020-04-10] MEDS: RIVAROXABAN 20 MG TABLET PO SCH (17:21)
[2020-04-10 18:58] VITALS: BP 122/65; PULSE 71; TEMP 97.8
== END 2020-04-10 20:06 | disposition home or self-care (01) | DRG 177 ==
LOC: JER 15:32 → JERBED 19:44 → J4W 04-05 15:47
PROVIDERS: ADMIT Internal Medicine; ATTEND Internal Medicine
PROC: XW033E5 Introduction of Remdesivir Anti-infective into Peripheral Vein, Percutaneous Approach, New Technology Group 5 (ICD-10-PCS; 2020-04-06)
PROC: XW13325 Transfusion of Convalescent Plasma (Nonautologous) into Peripheral Vein, Percutaneous Approach, New Technology Group 5 (ICD-10-PCS; principal; 2020-04-10)
DX: U07.1 COVID-19 (principal); J12.82 Pneumonia due to coronavirus disease 2019; J96.01 Acute respiratory failure with hypoxia; I24.8 Other forms of acute ischemic heart disease; G20 Parkinson's disease; I48.0 Paroxysmal atrial fibrillation; I10 Essential (primary) hypertension; I44.7 Left bundle-branch block, unspecified; R74.01 Elevation of levels of liver transaminase levels
CPT/HCPCS: 36415; 36430; 71045-TC-FY; 80048; 80053; 80061; 81003; 82728; 83036; 83615; 83721; 83735; 83880; 84100; 84436; 84443; 84484; 85025; 85379; 86140; 86769; 86850; 86900; 86901; 87804; 87899; 93005; 93010; 93306-TC; 94010; 97116-GP; 97162-GP; 99285-25; C9399; C9803; P9017; U0003

== ENCOUNTER 2020-07-15 18:02 | Emergency (ER) | payer OTHER ==
[2020-07-15 18:08] VITALS: TEMP 98.1; BMI 28.0
[2020-07-15 19:00] LABS: BASO % 0.2 % (0-2.0); HEMATOCRIT 38.3 % (32.4-45.2); HEMOGLOBIN 12.8 GM/dL (10.7-15.3); LYMPH % 35.6 % (8-40); MCH 30.7 pg (25.7-33.7); MCHC 33.4 g/dl (32.0-36.0); MEAN CELL VOLUME 91.9 fl (80-96); MEAN PLT VOLUME 10.9 fl (7.5-11.1); MONO % 9.1 % (3.8-10.2); NEUT % 55.1 % (42.8-82.8); PLATELET COUNT 182 K/MM3 (134-434); RBC 4.17 M/mm3 (3.60-5.2); RDW 13.3 % (11.6-15.6); WHITE BLOOD COUNT 6.2 K/mm3 (4.0-10.0)
[2020-07-15 19:06] LABS: INR 1.65 (0.83-1.09); PROTHROMBIN TIME (PATIENT) 19.7 SEC (9.7-13.0)
[2020-07-15 19:08] LABS: ACTIVATED PTT 41.8 SECONDS (25.2-36.5)
[2020-07-15 19:15] LABS: CALCIUM 8.8 mg/dL (8.5-10.1)
[2020-07-15 19:16] LABS: ALBUMIN 3.6 g/dl (3.4-5.0); BLOOD UREA NITROGEN 28.9 mg/dL (7-18)
[2020-07-15 19:20] LABS: BILIRUBIN,TOTAL 0.6 mg/dL (0.2-1); TOT PROT 7.8 g/dl (6.4-8.2)
[2020-07-15 19:41] VITALS: BP 129/102; PULSE 67
== END 2020-07-15 20:06 | disposition home or self-care (01) ==
LOC: JER 18:02
DX: K64.9 Unspecified hemorrhoids (principal)
CPT/HCPCS: 36415; 80053; 82272; 85025; 85610; 85730; 86850; 86900; 86901; 93005; 93010; 99284-25

== ENCOUNTER 2022-03-08 10:53 | Inpatient (IN) | payer OTHER ==
[2022-03-08 11:03] VITALS: BMI 29.8
[2022-03-08 12:33] LABS: BASO % 0.6 % (0-2.0); HEMATOCRIT 34.4 % (32.4-45.2); HEMOGLOBIN 11.3 GM/dL (10.7-15.3); LYMPH % 20.6 % (8-40); MCH 29.7 pg (25.7-33.7); MCHC 32.9 g/dl (32.0-36.0); MEAN PLT VOLUME 10.9 fl (7.5-11.1); MONO % 7.7 % (3.8-10.2); NEUT % 71.1 % (42.8-82.8); PLATELET COUNT 187 10^3/uL (134-434); RBC 3.82 M/mm3 (3.60-5.2); RDW 13.4 % (11.6-15.6); WHITE BLOOD COUNT 4.7 K/mm3 (4.0-10.0)
[2022-03-08 12:37] LABS: INR 2.28 (0.83-1.09); PROTHROMBIN TIME (PATIENT) 26.4 SEC (9.7-13.0)
[2022-03-08 12:40] LABS: ACTIVATED PTT 40.1 SECONDS (25.2-36.5)
[2022-03-08 13:17] LABS: EPI CELLS 6 /uL (0-25.1); HYALINE CASTS 1 /uL (0-3.1); URINE APPEARANCE CLOUDY; URINE BACTERIA 37 /uL (0-1359); URINE BILIRUBIN NEGATIVE (NEGATIVE); URINE COLOR DK YELLOW; URINE GLUCOSE (UA) NEGATIVE (NEGATIVE); URINE KETONE TRACE (NEGATIVE); URINE LEUK ESTERASE NEGATIVE (NEGATIVE); URINE NITRITE NEGATIVE (NEGATIVE); URINE PROTEIN 1+ (NEGATIVE); URINE RBC 3827 /uL (0-23.9); URINE UROBILINOGEN 0.2 mg/dL (0.2-1.0); URINE WBC 36 /uL (0-25.8)
[2022-03-08 13:23] LABS: CALCIUM 8.8 mg/dL (8.5-10.1)
[2022-03-08 13:24] LABS: ALBUMIN 3.3 g/dl (3.4-5.0); BLOOD UREA NITROGEN 20.5 mg/dL (7-18)
[2022-03-08 13:27] LABS: CREATININE 0.9 mg/dL (0.55-1.3)
[2022-03-08 13:29] LABS: BILIRUBIN,TOTAL 0.6 mg/dL (0.2-1); TOT PROT 6.7 g/dl (6.4-8.2)
[2022-03-08] MEDS ORDERED: ACETAMINOPHEN 325 MG TABLET (FP) PO PRN (14:09)
[2022-03-08] MEDS ORDERED: PANTOPRAZOLE SODIUM 40 MG VIAL ONE (21:00)
[2022-03-08] MEDS ORDERED: METOPROLOL TARTRATE 50 MG TABLET (FP) ONE (21:00)
[2022-03-08] MEDS: PANTOPRAZOLE SODIUM 40 MG VIAL IVPUSH SCH (21:07)
[2022-03-08] MEDS: METOPROLOL TARTRATE 50 MG TABLET (FP) PO SCH (21:07)
[2022-03-09 08:49] LABS: HEMATOCRIT 33.7 % (32.4-45.2); HEMOGLOBIN 11.2 GM/dL (10.7-15.3); MCHC 33.4 g/dl (32.0-36.0); MEAN CELL VOLUME 90.1 fl (80-96); MEAN PLT VOLUME 10.6 fl (7.5-11.1); PLATELET COUNT 154 10^3/uL (134-434); RBC 3.74 M/mm3 (3.60-5.2); RDW 12.7 % (11.6-15.6); WHITE BLOOD COUNT 5.5 K/mm3 (4.0-10.0)
[2022-03-09] MEDS: BUDESONIDE/FORMETEROL FUMARATE 160/4.5 mcg INHALER IH SCH ×3 (08:57→23:15)
[2022-03-09] MEDS: PANTOPRAZOLE SODIUM 40 MG VIAL IVPUSH SCH ×2 (10:11→21:22)
[2022-03-09] MEDS: NIFEdipine E.R 60 MG TABLET PO SCH (10:11)
[2022-03-09] MEDS: METOPROLOL TARTRATE 50 MG TABLET (FP) PO SCH (10:12)
[2022-03-09] MEDS: CARBIDOP 37.5MG/LEVODOPA 150MG/ENTACAPONE 200MG TABLET PO SCH ×3 (10:13→18:57)
[2022-03-09] MEDS ORDERED: PHYTONADIONE 10 MG/1 ML AMP IVPB ONE (10:53)
[2022-03-09] MEDS ORDERED: PANTOPRAZOLE SODIUM 160 MG in SODIUM CHLORIDE 250 ML IVPB SCH (11:00)
[2022-03-09] MEDS ORDERED: PANTOPRAZOLE SODIUM 160 MG in SODIUM CHLORIDE 290 ML IVPB SCH (11:02)
[2022-03-09] MEDS ORDERED: SODIUM CHLORIDE 0.45% 1,000 ML IV SCH (17:00)
[2022-03-09] MEDS: POLYETHYLENE GLYCOL (HEALTHYLAX) 3350 17 GM PACKET PO SCH (21:20)
[2022-03-10] MEDS: CARBIDOP 37.5MG/LEVODOPA 150MG/ENTACAPONE 200MG TABLET PO SCH ×4 (06:14→18:23)
[2022-03-10] MEDS: POLYETHYLENE GLYCOL (HEALTHYLAX) 3350 17 GM PACKET PO SCH ×2 (10:21→22:02)
[2022-03-10] MEDS: NIFEdipine E.R 60 MG TABLET PO SCH (10:21)
[2022-03-10] MEDS: PANTOPRAZOLE SODIUM 40 MG VIAL IVPUSH SCH ×2 (10:21→22:02)
[2022-03-10 10:26] LABS: BASO % 0.9 % (0-2.0); HEMATOCRIT 33.6 % (32.4-45.2); HEMOGLOBIN 11.2 GM/dL (10.7-15.3); LYMPH % 26.4 % (8-40); MCH 29.7 pg (25.7-33.7); MCHC 33.3 g/dl (32.0-36.0); MEAN CELL VOLUME 89.2 fl (80-96); MEAN PLT VOLUME 11.2 fl (7.5-11.1); MONO % 8.5 % (3.8-10.2); NEUT % 64.2 % (42.8-82.8); PLATELET COUNT 180 10^3/uL (134-434); RBC 3.76 M/mm3 (3.60-5.2); RDW 12.9 % (11.6-15.6); WHITE BLOOD COUNT 4.5 K/mm3 (4.0-10.0)
[2022-03-10] MEDS: BUDESONIDE/FORMETEROL FUMARATE 160/4.5 mcg INHALER IH SCH ×2 (10:26→22:00)
[2022-03-10 10:31] LABS: INR 1.1 (0.83-1.09); PROTHROMBIN TIME (PATIENT) 12.7 SEC (9.7-13.0)
[2022-03-10 11:11] LABS: ALBUMIN 3.3 g/dl (3.4-5.0); BLOOD UREA NITROGEN 8.9 mg/dL (7-18); CALCIUM 8.6 mg/dL (8.5-10.1)
[2022-03-10] MEDS ORDERED: LIDOCAINE VISCOUS 2% ORAL/TOP 15 ML UNIT-DOSE CUP ONE (11:12)
[2022-03-10 11:14] LABS: CREATININE 0.7 mg/dL (0.55-1.3)
[2022-03-10 11:16] LABS: BILIRUBIN,TOTAL 0.9 mg/dL (0.2-1); TOT PROT 6.5 g/dl (6.4-8.2)
[2022-03-11] MEDS: CARBIDOP 37.5MG/LEVODOPA 150MG/ENTACAPONE 200MG TABLET PO SCH ×4 (06:08→18:09)
[2022-03-11] MEDS ORDERED: PEG 3350/NA SULF BICARB CL/KCL 4000 ML SOLN.RECON PO ONE (09:00)
[2022-03-11] MEDS: NIFEdipine E.R 60 MG TABLET PO SCH (09:53)
[2022-03-11] MEDS: POLYETHYLENE GLYCOL (HEALTHYLAX) 3350 17 GM PACKET PO SCH ×2 (09:53→22:36)
[2022-03-11] MEDS: PANTOPRAZOLE SODIUM 40 MG VIAL IVPUSH SCH ×2 (09:53→22:37)
[2022-03-11] MEDS ORDERED: BISACODYL 5 MG TABLET.DR (FP) PO ONE (18:00)
[2022-03-12] MEDS: CARBIDOP 37.5MG/LEVODOPA 150MG/ENTACAPONE 200MG TABLET PO SCH ×3 (06:18→15:56)
[2022-03-12] MEDS: PANTOPRAZOLE SODIUM 40 MG VIAL IVPUSH SCH (09:15)
[2022-03-12] MEDS: NIFEdipine E.R 60 MG TABLET PO SCH (09:15)
[2022-03-12] MEDS: POLYETHYLENE GLYCOL (HEALTHYLAX) 3350 17 GM PACKET PO SCH (09:40)
[2022-03-12 10:11] LABS: INR 1.12 (0.83-1.09); PROTHROMBIN TIME (PATIENT) 12.9 SEC (9.7-13.0)
[2022-03-12 10:16] LABS: BASO % 0.7 % (0-2.0); HEMATOCRIT 35.8 % (32.4-45.2); LYMPH % 22.3 % (8-40); MCH 29.6 pg (25.7-33.7); MCHC 33.4 g/dl (32.0-36.0); MEAN CELL VOLUME 88.7 fl (80-96); MEAN PLT VOLUME 10.7 fl (7.5-11.1); MONO % 8.1 % (3.8-10.2); NEUT % 68.9 % (42.8-82.8); PLATELET COUNT 205 10^3/uL (134-434); RBC 4.04 M/mm3 (3.60-5.2); RDW 12.8 % (11.6-15.6); WHITE BLOOD COUNT 5.5 K/mm3 (4.0-10.0)
[2022-03-12 10:31] LABS: BLOOD UREA NITROGEN 12.3 mg/dL (7-18); CALCIUM 8.7 mg/dL (8.5-10.1); MAGNESIUM 1.9 mg/dL (1.8-2.4)
[2022-03-12 10:34] LABS: CREATININE 0.8 mg/dL (0.55-1.3)
[2022-03-12 13:17] VITALS: BP 114/73
[2022-03-12 13:27] VITALS: TEMP 98
[2022-03-12] MEDS ORDERED: SODIUM CHLORIDE 1,000 ML IV SCH (13:45)
[2022-03-12 17:51] VITALS: PULSE 110; RESP 20
[2022-03-12] MEDS ORDERED: RIVAROXABAN 20 MG TABLET PO SCH (18:00)
[2022-03-12] MEDS ORDERED: HYDROCORTISONE ACETATE 25 MG/SUPP.RECT RC SCH (22:00)
== END 2022-03-12 18:36 | disposition home or self-care (01) | DRG 394 ==
LOC: JER 10:53 → JERBED 15:07 → J8W 23:45
PROVIDERS: ADMIT Family Medicine; ATTEND Family Medicine
PROC: 0DB78ZX Excision of Stomach, Pylorus, Via Natural or Artificial Opening Endoscopic, Diagnostic (ICD-10-PCS; 2022-03-10)
PROC: 0DB98ZX Excision of Duodenum, Via Natural or Artificial Opening Endoscopic, Diagnostic (ICD-10-PCS; principal; 2022-03-10 13:00)
PROC: 0DJD8ZZ Inspection of Lower Intestinal Tract, Via Natural or Artificial Opening Endoscopic (ICD-10-PCS; 2022-03-12)
DX: K64.8 Other hemorrhoids (principal); N13.30 Unspecified hydronephrosis; I48.91 Unspecified atrial fibrillation; I10 Essential (primary) hypertension; G20 Parkinson's disease; K29.70 Gastritis, unspecified, without bleeding; E87.5 Hyperkalemia; K57.90 Diverticulosis of intestine, part unspecified, without perforation or abscess without bleeding
CPT/HCPCS: 0241U-QW; 36415; 76775-TC; 80048; 80053; 81003; 82272; 83540; 83550; 83735; 85025; 85027; 85610; 85730; 86850; 86900; 86901; 87086; 88305-TC; 93005; 93010; 97116-GP; 97161-GP; 99285-25

== ENCOUNTER 2022-05-16 07:02 | Emergency (ER) | payer OTHER ==
[2022-05-16 07:20] VITALS: TEMP 97.7; BMI 26.9
[2022-05-16] MEDS ORDERED: OXYMETAZOLINE 0.05% NASAL SOLUTION 15 ML BOTTLE NS PRN (07:28)
[2022-05-16 08:50] VITALS: BP 125/83; PULSE 97; RESP 18
== END 2022-05-16 08:50 | disposition home or self-care (01) ==
LOC: JER 07:02
DX: R04.0 Epistaxis (principal)
CPT/HCPCS: 99282-25

== ENCOUNTER 2022-05-18 12:03 | Inpatient (IN) | payer OTHER ==
[2022-05-18 14:17] LABS: EPI CELLS 6 /uL (0-25.1); HYALINE CASTS 0 /uL (0-3.1); PH,URINE 5.5 (5.0-8.0); URINE APPEARANCE CLEAR; URINE BACTERIA 9 /uL (0-1359); URINE BILIRUBIN NEGATIVE (NEGATIVE); URINE COLOR DK YELLOW; URINE GLUCOSE (UA) NEGATIVE (NEGATIVE); URINE KETONE TRACE (NEGATIVE); URINE LEUK ESTERASE 1+ (NEGATIVE); URINE NITRITE NEGATIVE (NEGATIVE); URINE PROTEIN TRACE (NEGATIVE); URINE RBC 46 /uL (0-23.9); URINE UROBILINOGEN 0.2 mg/dL (0.2-1.0); URINE WBC 44 /uL (0-25.8)
[2022-05-18 14:20] LABS: BASO % 0.3 % (0-2.0); HEMATOCRIT 30.7 % (32.4-45.2); LYMPH % 22.9 % (8-40); MCH 26.5 pg (25.7-33.7); MCHC 32.7 g/dl (32.0-36.0); MEAN CELL VOLUME 81.3 fl (80-96); MEAN PLT VOLUME 9.9 fl (7.5-11.1); NEUT % 67.8 % (42.8-82.8); PLATELET COUNT 174 10^3/uL (134-434); RBC 3.78 M/mm3 (3.60-5.2); RDW 13.4 % (11.6-15.6); WHITE BLOOD COUNT 4.7 K/mm3 (4.0-10.0)
[2022-05-18 14:30] LABS: CALCIUM 8.9 mg/dL (8.5-10.1)
[2022-05-18 14:31] LABS: ALBUMIN 3.4 g/dl (3.4-5.0); BLOOD UREA NITROGEN 21.8 mg/dL (7-18)
[2022-05-18 14:34] LABS: CREATININE 0.8 mg/dL (0.55-1.3)
[2022-05-18 14:35] LABS: BILIRUBIN,TOTAL 0.4 mg/dL (0.2-1); TOT PROT 6.9 g/dl (6.4-8.2)
[2022-05-18] MEDS ORDERED: CEFTRIAXONE 1,000 MG in DEXTROSE 5%-WATER - 50 ML IVPB ONE (14:39)
[2022-05-18 14:46] LABS: URINE CRYSTALS NO SEEN /hpf
[2022-05-18] MEDS ORDERED: CEFTRIAXONE 1 GM/50 ML BAG ONE (15:38)
[2022-05-18 17:28] VITALS: BMI 26.3
[2022-05-18] MEDS ORDERED: POLYETHYLENE GLYCOL (HEALTHYLAX) 3350 17 GM PACKET PO PRN (17:37)
[2022-05-18] MEDS: D5-1/2NS+20 MEQ KCL - 20 MEQ/1,000 ML INFUS.BAG IV SCH (19:13)
[2022-05-18 21:03] LABS: HEMATOCRIT 29.9 % (32.4-45.2); HEMOGLOBIN 9.8 GM/dL (10.7-15.3); MCH 26.6 pg (25.7-33.7); MCHC 32.9 g/dl (32.0-36.0); MEAN CELL VOLUME 80.9 fl (80-96); MEAN PLT VOLUME 10.3 fl (7.5-11.1); PLATELET COUNT 154 10^3/uL (134-434); RDW 13.6 % (11.6-15.6); WHITE BLOOD COUNT 4.1 K/mm3 (4.0-10.0)
[2022-05-18] MEDS: PANTOPRAZOLE SODIUM 40 MG VIAL IVPUSH SCH (21:29)
[2022-05-19] MEDS ORDERED: ACETAMINOPHEN 325 MG TABLET (FP) PO ONE (02:17)
[2022-05-19] MEDS ORDERED: MELATONIN 5 MG TABLETS PO ONE (02:17)
[2022-05-19] MEDS: CARBIDOPA PO SCH ×4 (06:22→18:43)
[2022-05-19] MEDS: [UNRECOGNIZED DRUG - OTHER] PO SCH ×4 (06:22→18:43)
[2022-05-19] MEDS: LEVODOPA PO SCH ×4 (06:22→18:43)
[2022-05-19] MEDS: ENTACAPONE PO SCH ×4 (06:22→18:43)
[2022-05-19 07:40] LABS: BASO % 0.3 % (0-2.0); HEMATOCRIT 29.8 % (32.4-45.2); LYMPH % 29.3 % (8-40); MCH 26.8 pg (25.7-33.7); MCHC 33.5 g/dl (32.0-36.0); MEAN CELL VOLUME 80.1 fl (80-96); MEAN PLT VOLUME 10.4 fl (7.5-11.1); MONO % 9.4 % (3.8-10.2); PLATELET COUNT 153 10^3/uL (134-434); RBC 3.71 M/mm3 (3.60-5.2); RDW 13.3 % (11.6-15.6); WHITE BLOOD COUNT 4.5 K/mm3 (4.0-10.0)
[2022-05-19 08:40] LABS: BILIRUBIN,TOTAL 0.5 mg/dL (0.2-1)
[2022-05-19 08:43] LABS: TOT PROT 6.5 g/dl (6.4-8.2)
[2022-05-19 08:45] LABS: ALBUMIN 3.1 g/dl (3.4-5.0); BLOOD UREA NITROGEN 16.7 mg/dL (7-18)
[2022-05-19 08:46] LABS: CALCIUM 8.6 mg/dL (8.5-10.1); CREATININE 0.7 mg/dL (0.55-1.3)
[2022-05-19] MEDS: PANTOPRAZOLE SODIUM 40 MG VIAL IVPUSH SCH ×2 (09:43→22:21)
[2022-05-19] MEDS: RIVAROXABAN 20 MG TABLET PO SCH ×2 (09:44→10:14)
[2022-05-19] MEDS ORDERED: IRON SUCROSE INJECTION 200 MG in SODIUM CHLORIDE 90 ML IVPB ONE (10:00)
[2022-05-19] MEDS: D5-1/2NS+20 MEQ KCL - 20 MEQ/1,000 ML INFUS.BAG IV SCH (17:46)
[2022-05-19] MEDS: POLYETHYLENE GLYCOL (HEALTHYLAX) 3350 17 GM PACKET PO SCH (22:21)
[2022-05-20] MEDS: [UNRECOGNIZED DRUG - OTHER] PO SCH ×4 (06:39→17:48)
[2022-05-20] MEDS: ENTACAPONE PO SCH ×4 (06:39→17:48)
[2022-05-20] MEDS: D5-1/2NS+20 MEQ KCL - 20 MEQ/1,000 ML INFUS.BAG IV SCH (06:39)
[2022-05-20] MEDS: CARBIDOPA PO SCH ×4 (06:39→17:48)
[2022-05-20] MEDS: LEVODOPA PO SCH ×4 (06:39→17:48)
[2022-05-20 08:26] VITALS: RESP 20
[2022-05-20] MEDS: POLYETHYLENE GLYCOL (HEALTHYLAX) 3350 17 GM PACKET PO SCH ×2 (09:37→21:24)
[2022-05-20] MEDS: PANTOPRAZOLE SODIUM 40 MG VIAL IVPUSH SCH ×2 (09:37→21:25)
[2022-05-20] MEDS: RIVAROXABAN 20 MG TABLET PO SCH (09:37)
[2022-05-20] MEDS ORDERED: IRON SUCROSE INJECTION 200 MG in SODIUM CHLORIDE 90 ML IVPB ONE (10:00)
[2022-05-20 11:31] LABS: HEMOGLOBIN 10.5 GM/dL (10.7-15.3); MCH 26.7 pg (25.7-33.7); MCHC 32.9 g/dl (32.0-36.0); MEAN CELL VOLUME 81.2 fl (80-96); MEAN PLT VOLUME 11.1 fl (7.5-11.1); PLATELET COUNT 184 10^3/uL (134-434); RBC 3.94 M/mm3 (3.60-5.2); RDW 13.3 % (11.6-15.6); WHITE BLOOD COUNT 5.3 K/mm3 (4.0-10.0)
[2022-05-21] MEDS: CARBIDOPA PO SCH ×3 (05:50→14:27)
[2022-05-21] MEDS: D5-1/2NS+20 MEQ KCL - 20 MEQ/1,000 ML INFUS.BAG IV SCH (05:50)
[2022-05-21] MEDS: [UNRECOGNIZED DRUG - OTHER] PO SCH ×3 (05:50→14:27)
[2022-05-21] MEDS: LEVODOPA PO SCH ×3 (05:50→14:27)
[2022-05-21] MEDS: ENTACAPONE PO SCH ×3 (05:50→14:27)
[2022-05-21] MEDS: RIVAROXABAN 20 MG TABLET PO SCH (09:53)
[2022-05-21] MEDS: POLYETHYLENE GLYCOL (HEALTHYLAX) 3350 17 GM PACKET PO SCH (09:54)
[2022-05-21] MEDS: PANTOPRAZOLE SODIUM 40 MG VIAL IVPUSH SCH (09:54)
[2022-05-21] MEDS ORDERED: IRON SUCROSE INJECTION 200 MG in SODIUM CHLORIDE 90 ML IVPB ONE (10:00)
[2022-05-21] MEDS ORDERED: PANTOPRAZOLE 40 MG TABLET PO SCH (13:09)
[2022-05-21 15:43] VITALS: BP 138/74; PULSE 60; TEMP 97.9
== END 2022-05-21 16:15 | disposition home or self-care (01) | DRG 812 ==
LOC: JER 12:03 → JERBED 15:34 → J4W 17:12 → OBSVTOIN 17:37
PROVIDERS: ADMIT Family Medicine; ATTEND Family Medicine
DX: D50.9 Iron deficiency anemia, unspecified (principal); K92.2 Gastrointestinal hemorrhage, unspecified; I48.91 Unspecified atrial fibrillation; G20 Parkinson's disease; K21.9 Gastro-esophageal reflux disease without esophagitis; I44.7 Left bundle-branch block, unspecified; K59.00 Constipation, unspecified; I35.1 Nonrheumatic aortic (valve) insufficiency; K64.8 Other hemorrhoids; K57.90 Diverticulosis of intestine, part unspecified, without perforation or abscess without bleeding; J44.9 Chronic obstructive pulmonary disease, unspecified; R55 Syncope and collapse; W17.89XA Other fall from one level to another, initial encounter; Y92.098 Other place in other non-institutional residence as the place of occurrence of the external cause
CPT/HCPCS: 0241U-QW; 36415; 70450-TC; 71045-TC-FY; 80053; 80061; 81003; 82272; 82728; 83036; 83540; 83550; 83735; 84443; 84484; 85025; 85027; 87086; 93005; 93010; 93306-TC; 99285-25; G0378; J1756

== ENCOUNTER 2022-08-11 17:22 | Emergency (ER) | payer OTHER ==
[2022-08-11 18:35] VITALS: TEMP 98.1; BMI 28.9
[2022-08-11 19:13] LABS: VENOUS BASE EXCESS -1.3 mmol/L (-2-2); VENOUS O2 SATURATION 36.1 % (70-80); VENOUS PCO2 48.2 mmHg (38-52); VENOUS PH 7.333 (7.310-7.410)
[2022-08-11 19:25] LABS: BASO % 0.4 % (0-2.0); HEMOGLOBIN 12.2 GM/dL (10.7-15.3); LYMPH % 27.8 % (8-40); MCH 27.7 pg (25.7-33.7); MCHC 32.1 g/dl (32.0-36.0); MEAN CELL VOLUME 86.3 fl (80-96); MEAN PLT VOLUME 10.8 fl (7.5-11.1); NEUT % 63.8 % (42.8-82.8); PLATELET COUNT 152 10^3/uL (134-434); RBC 4.41 M/mm3 (3.60-5.2); RDW 18.5 % (11.6-15.6); WHITE BLOOD COUNT 4.6 K/mm3 (4.0-10.0)
[2022-08-11 19:30] LABS: EPI CELLS 22 /uL (0-25.1); HYALINE CASTS 1 /uL (0-3.1); URINE APPEARANCE TURBID; URINE BILIRUBIN 1+ (NEGATIVE); URINE COLOR ORANGE; URINE GLUCOSE (UA) NEGATIVE (NEGATIVE); URINE KETONE NEGATIVE (NEGATIVE); URINE LEUK ESTERASE 1+ (NEGATIVE); URINE NITRITE POSITIVE (NEGATIVE); URINE PROTEIN 2+ (NEGATIVE); URINE RBC 10045 /uL (0-23.9); URINE UROBILINOGEN 0.2 mg/dL (0.2-1.0); URINE WBC 153 /uL (0-25.8)
[2022-08-11] MEDS ORDERED: CEFTRIAXONE 1,000 MG in DEXTROSE 5%-WATER - 50 ML IVPB ONE (19:43)
[2022-08-11 19:48] LABS: POTASSIUM 4.2 mmol/L (3.5-5.1)
[2022-08-11] MEDS ORDERED: CEFTRIAXONE 1 GM/50 ML BAG ONE (19:48)
[2022-08-11 19:50] LABS: CALCIUM 9.1 mg/dL (8.5-10.1)
[2022-08-11 19:51] LABS: ALBUMIN 3.6 g/dl (3.4-5.0); BLOOD UREA NITROGEN 22.8 mg/dL (7-18); MAGNESIUM 2.1 mg/dL (1.8-2.4)
[2022-08-11 19:54] LABS: CREATININE 0.9 mg/dL (0.55-1.3)
[2022-08-11 19:55] LABS: TOT PROT 7.1 g/dl (6.4-8.2)
[2022-08-11 19:56] LABS: BILIRUBIN,TOTAL 0.5 mg/dL (0.2-1)
[2022-08-11 19:59] LABS: N-TERMINAL BNP 727.2 pg/ml (5-450)
[2022-08-11 20:14] VITALS: BP 181/85; PULSE 57; RESP 22
[2022-08-11 20:20] LABS: URINE BACTERIA 17.6 /uL (0-1359)
[2022-08-11] MEDS ORDERED: AZITHROMYCIN IVPB 500 MG in DEXTROSE 5%-WATER - 250 ML IVPB ONE (20:33)
[2022-08-11] MEDS ORDERED: AZITHROMYCIN IVPB 500 MG/250 ML BAG IVPB ONE (20:46)
== END 2022-08-11 22:16 | disposition home or self-care (01) ==
LOC: JER 17:22
DX: J18.9 Pneumonia, unspecified organism (principal); N39.0 Urinary tract infection, site not specified
CPT/HCPCS: 0241U-QW; 36415; 70450-TC; 71045-TC-FY; 71250-TC; 72125-TC; 80053; 81003; 82803; 82962; 83735; 83880; 84484; 85025; 87086; 87186; 93005; 93010; 99285-25

== ENCOUNTER 2022-12-05 15:07 | Observation (INO) | payer OTHER ==
[2022-12-05 17:06] LABS: BASO % 0.9 % (0-2.0); HEMOGLOBIN 11.7 GM/dL (10.7-15.3); LYMPH % 26.2 % (8-40); MCH 29.6 pg (25.7-33.7); MCHC 33.5 g/dl (32.0-36.0); MEAN CELL VOLUME 88.3 fl (80-96); MONO % 8.6 % (3.8-10.2); NEUT % 64.3 % (42.8-82.8); PLATELET COUNT 144 10^3/uL (134-434); RBC 3.97 M/mm3 (3.60-5.2); RDW 14.5 % (11.6-15.6); WHITE BLOOD COUNT 5.2 K/mm3 (4.0-10.0)
[2022-12-05 17:13] LABS: INR 1.68 (0.83-1.09); PROTHROMBIN TIME (PATIENT) 19.4 SEC (9.7-13.0)
[2022-12-05 17:16] LABS: ACTIVATED PTT 40.3 SECONDS (25.2-36.5)
[2022-12-05 17:24] LABS: POTASSIUM 4.3 mmol/L (3.5-5.1)
[2022-12-05 17:25] LABS: CALCIUM 8.4 mg/dL (8.5-10.1)
[2022-12-05 17:26] LABS: ALBUMIN 3.3 g/dl (3.4-5.0); BLOOD UREA NITROGEN 17.6 mg/dL (7-18)
[2022-12-05 17:29] LABS: CREATININE 0.9 mg/dL (0.55-1.3)
[2022-12-05 17:31] LABS: TOT PROT 6.8 g/dl (6.4-8.2)
[2022-12-05 17:40] LABS: BILIRUBIN,TOTAL 0.5 mg/dL (0.2-1)
[2022-12-05 19:46] LABS: BASO % 0.7 % (0-2.0); HEMATOCRIT 30.7 % (32.4-45.2); HEMOGLOBIN 10.3 GM/dL (10.7-15.3); LYMPH % 28.6 % (8-40); MCH 29.5 pg (25.7-33.7); MCHC 33.6 g/dl (32.0-36.0); MEAN CELL VOLUME 87.9 fl (80-96); MEAN PLT VOLUME 10.7 fl (7.5-11.1); MONO % 9.5 % (3.8-10.2); NEUT % 61.2 % (42.8-82.8); PLATELET COUNT 131 10^3/uL (134-434); RBC 3.49 M/mm3 (3.60-5.2); RDW 14.4 % (11.6-15.6); WHITE BLOOD COUNT 4.3 K/mm3 (4.0-10.0)
[2022-12-05] MEDS ORDERED: DOCUSATE SODIUM 100 MG CAPSULE (FP) PO PRN (22:57)
[2022-12-05] MEDS ORDERED: ACETAMINOPHEN 325 MG TABLET (FP) PO PRN (22:57)
[2022-12-05] MEDS ORDERED: MELATONIN 5 MG TABLETS PO PRN (23:05)
[2022-12-06 02:46] LABS: HEMATOCRIT 30.6 % (32.4-45.2); HEMOGLOBIN 10.5 GM/dL (10.7-15.3); MCHC 34.4 g/dl (32.0-36.0); MEAN CELL VOLUME 87.2 fl (80-96); MEAN PLT VOLUME 10.8 fl (7.5-11.1); PLATELET COUNT 140 10^3/uL (134-434); RBC 3.51 M/mm3 (3.60-5.2); RDW 14.6 % (11.6-15.6); WHITE BLOOD COUNT 4.6 K/mm3 (4.0-10.0)
[2022-12-06 07:03] LABS: HEMATOCRIT 33.5 % (32.4-45.2); HEMOGLOBIN 11.1 GM/dL (10.7-15.3); MCH 29.4 pg (25.7-33.7); MCHC 33.1 g/dl (32.0-36.0); MEAN CELL VOLUME 88.8 fl (80-96); MEAN PLT VOLUME 10.5 fl (7.5-11.1); PLATELET COUNT 156 10^3/uL (134-434); RBC 3.77 M/mm3 (3.60-5.2); RDW 14.1 % (11.6-15.6); WHITE BLOOD COUNT 4.6 K/mm3 (4.0-10.0)
[2022-12-06 07:15] LABS: POTASSIUM 3.7 mmol/L (3.5-5.1)
[2022-12-06 07:17] LABS: CALCIUM 8.1 mg/dL (8.5-10.1)
[2022-12-06 07:18] LABS: BLOOD UREA NITROGEN 12.6 mg/dL (7-18)
[2022-12-06 07:21] LABS: CREATININE 0.6 mg/dL (0.55-1.3)
[2022-12-06] MEDS ORDERED: PANTOPRAZOLE SODIUM 40 MG VIAL IVPUSH SCH ×2 (10:00→22:00)
[2022-12-06 10:21] VITALS: BP 170/65; RESP 18
[2022-12-06 10:29] VITALS: TEMP 98.1
[2022-12-06] MEDS ORDERED: PANTOPRAZOLE SODIUM 40 MG VIAL ONE (10:30)
[2022-12-06] MEDS ORDERED: CARBIDOP 37.5MG/LEVODOPA 150MG/ENTACAPONE 200MG TABLET PO SCH ×2 (11:00→14:00)
[2022-12-06 11:09] VITALS: PULSE 60; BMI 26.1
[2022-12-06] MEDS ORDERED: ACETAMINOPHEN 325 MG TABLET (FP) PO PRN (12:17)
[2022-12-06] MEDS ORDERED: MELATONIN 5 MG TABLETS PO PRN (12:17)
[2022-12-06] MEDS ORDERED: DOCUSATE SODIUM 100 MG CAPSULE (FP) PO PRN (12:17)
[2022-12-06 12:18] LABS: BASO % 0.5 % (0-2.0); HEMOGLOBIN 10.9 GM/dL (10.7-15.3); LYMPH % 21.1 % (8-40); MCH 29.9 pg (25.7-33.7); MEAN CELL VOLUME 87.8 fl (80-96); MEAN PLT VOLUME 11.1 fl (7.5-11.1); MONO % 7.5 % (3.8-10.2); NEUT % 70.9 % (42.8-82.8); PLATELET COUNT 150 10^3/uL (134-434); RBC 3.65 M/mm3 (3.60-5.2); RDW 14.2 % (11.6-15.6); WHITE BLOOD COUNT 5.1 K/mm3 (4.0-10.0)
[2022-12-06] MEDS ORDERED: POLYETHYLENE GLYCOL (HEALTHYLAX) 3350 17 GM PACKET PO SCH (22:00)
== END 2022-12-06 15:08 | disposition home or self-care (01) ==
LOC: JER 15:07 → JERBED 20:06
PROVIDERS: ADMIT Internal Medicine; ATTEND Family Medicine
PROC: 3E033GC Introduction of Other Therapeutic Substance into Peripheral Vein, Percutaneous Approach (ICD-10-PCS; principal; 2022-12-05)
DX: K64.9 Unspecified hemorrhoids (principal); K62.5 Hemorrhage of anus and rectum; R79.9 Abnormal finding of blood chemistry, unspecified; K59.00 Constipation, unspecified; I50.30 Unspecified diastolic (congestive) heart failure; K57.90 Diverticulosis of intestine, part unspecified, without perforation or abscess without bleeding; I11.0 Hypertensive heart disease with heart failure; I49.9 Cardiac arrhythmia, unspecified; I48.91 Unspecified atrial fibrillation; I35.0 Nonrheumatic aortic (valve) stenosis; Z79.01 Long term (current) use of anticoagulants; J44.9 Chronic obstructive pulmonary disease, unspecified; G20.A1 Parkinson's disease without dyskinesia, without mention of fluctuations; I44.7 Left bundle-branch block, unspecified; R63.0 Anorexia; Z88.8 Allergy status to other drugs, medicaments and biological substances
CPT/HCPCS: 36415; 74177-TC; 80048; 80053; 83735; 85025; 85027; 85610; 85730; 86850; 86900; 86901; 93005; 93010; 96372; 99285-25; G0378; Q9967

== ENCOUNTER 2022-12-19 09:00 | Inpatient (IN) | payer OTHER ==
[2022-12-19 09:15] VITALS: BMI 27.4
[2022-12-19] MEDS ORDERED: ACETAMINOPHEN 1000 MG/100 ML BAG IVPB ONE (09:49)
[2022-12-19] MEDS ORDERED: LIDOCAINE 5% TOPICAL PATCH TP ONE (09:49)
[2022-12-19] MEDS ORDERED: ACETAMINOPHEN INJECTION 100 ML IVPB ONE (10:09)
[2022-12-19] MEDS ORDERED: LIDOCAINE 4% PATCH TP ONE ×2 (10:23→11:03)
[2022-12-19 11:03] LABS: BASO % 0.5 % (0-2.0); HEMATOCRIT 33.2 % (32.4-45.2); HEMOGLOBIN 11.1 GM/dL (10.7-15.3); LYMPH % 19.6 % (8-40); MCHC 33.5 g/dl (32.0-36.0); MEAN CELL VOLUME 86.5 fl (80-96); MEAN PLT VOLUME 10.5 fl (7.5-11.1); MONO % 9.8 % (3.8-10.2); NEUT % 70.1 % (42.8-82.8); PLATELET COUNT 190 10^3/uL (134-434); RBC 3.84 M/mm3 (3.60-5.2); RDW 14.2 % (11.6-15.6); WHITE BLOOD COUNT 6.4 K/mm3 (4.0-10.0)
[2022-12-19 11:09] LABS: EPI CELLS 5 /uL (0-25.1); HYALINE CASTS 0 /uL (0-3.1); PH,URINE 5.5 (5.0-8.0); URINE APPEARANCE CLEAR; URINE BACTERIA >9,000 /uL (0-1359); URINE BILIRUBIN NEGATIVE (NEGATIVE); URINE COLOR DK YELLOW; URINE GLUCOSE (UA) NEGATIVE (NEGATIVE); URINE KETONE TRACE (NEGATIVE); URINE LEUK ESTERASE 2+ (NEGATIVE); URINE NITRITE NEGATIVE (NEGATIVE); URINE PROTEIN NEGATIVE (NEGATIVE); URINE RBC 19 /uL (0-23.9); URINE UROBILINOGEN 0.2 mg/dL (0.2-1.0); URINE WBC 432 /uL (0-25.8)
[2022-12-19 11:51] LABS: POTASSIUM 4.4 mmol/L (3.5-5.1)
[2022-12-19 11:54] LABS: ALBUMIN 3.2 g/dl (3.4-5.0); BLOOD UREA NITROGEN 17.8 mg/dL (7-18); CALCIUM 8.4 mg/dL (8.5-10.1)
[2022-12-19 11:57] LABS: CREATININE 0.8 mg/dL (0.55-1.3)
[2022-12-19 11:59] LABS: BILIRUBIN,TOTAL 0.6 mg/dL (0.2-1); TOT PROT 6.7 g/dl (6.4-8.2)
[2022-12-19] MEDS ORDERED: CEFTRIAXONE 1 GM/50 ML BAG ONE (12:08)
[2022-12-19] MEDS ORDERED: SODIUM CHLORIDE 0.9% 500 ML INFUS.BAG IV ONE (13:33)
[2022-12-19] MEDS ORDERED: dilTIAZem HCL 50 MG/10 ML - 10 ML VIAL IVPUSH ONE (13:57)
[2022-12-19] MEDS ORDERED: dilTIAZem HCL 125 MG/25 ML - 25 ML VIAL ONE (14:02)
[2022-12-19] MEDS ORDERED: dilTIAZem HCL 30 MG TABLET ONE (15:10)
[2022-12-19] MEDS ORDERED: traMADol HCL 50 MG TABLET PO PRN (15:35)
[2022-12-19] MEDS ORDERED: ACETAMINOPHEN 325 MG TABLET (FP) ONE (16:52)
[2022-12-19] MEDS: ACETAMINOPHEN 325 MG TABLET (FP) PO PRN (16:55)
[2022-12-19] MEDS: CARBIDOP 37.5MG/LEVODOPA 150MG/ENTACAPONE 200MG TABLET PO SCH (17:11)
[2022-12-19] MEDS ORDERED: POLYETHYLENE GLYCOL (HEALTHYLAX) 3350 17 GM PACKET ONE (21:39)
[2022-12-19] MEDS ORDERED: MELATONIN 5 MG TABLETS ONE (21:40)
[2022-12-19] MEDS: MELATONIN 5 MG TABLETS PO PRN (21:58)
[2022-12-19] MEDS: POLYETHYLENE GLYCOL (HEALTHYLAX) 3350 17 GM PACKET PO SCH (21:58)
[2022-12-19] MEDS ORDERED: LIDOCAINE PATCH REMOVAL MC ONE ×2 (22:00)
[2022-12-20] MEDS: CARBIDOP 37.5MG/LEVODOPA 150MG/ENTACAPONE 200MG TABLET PO SCH ×4 (06:26→17:43)
[2022-12-20 07:30] LABS: HEMATOCRIT 34.5 % (32.4-45.2); HEMOGLOBIN 11.2 GM/dL (10.7-15.3); MCH 28.6 pg (25.7-33.7); MCHC 32.5 g/dl (32.0-36.0); MEAN CELL VOLUME 88.1 fl (80-96); RBC 3.92 M/mm3 (3.60-5.2); RDW 13.8 % (11.6-15.6); WHITE BLOOD COUNT 5.3 K/mm3 (4.0-10.0)
[2022-12-20 07:31] LABS: BASO % 0.6 % (0-2.0); LYMPH % 22.6 % (8-40); MEAN PLT VOLUME 10.3 fl (7.5-11.1); MONO % 8.7 % (3.8-10.2); NEUT % 68.1 % (42.8-82.8); PLATELET COUNT 196 10^3/uL (134-434)
[2022-12-20 07:53] LABS: POTASSIUM 4.3 mmol/L (3.5-5.1)
[2022-12-20 07:54] LABS: ALBUMIN 3.1 g/dl (3.4-5.0)
[2022-12-20 07:55] LABS: BLOOD UREA NITROGEN 15.2 mg/dL (7-18); CALCIUM 8.2 mg/dL (8.5-10.1); MAGNESIUM 1.9 mg/dL (1.8-2.4)
[2022-12-20 07:58] LABS: CREATININE 0.6 mg/dL (0.55-1.3)
[2022-12-20 07:59] LABS: BILIRUBIN,TOTAL 0.5 mg/dL (0.2-1); TOT PROT 6.4 g/dl (6.4-8.2)
[2022-12-20] MEDS: PANTOPRAZOLE 40 MG TABLET PO SCH (09:21)
[2022-12-20] MEDS: POLYETHYLENE GLYCOL (HEALTHYLAX) 3350 17 GM PACKET PO SCH ×2 (09:21→21:51)
[2022-12-20] MEDS ORDERED: METOPROLOL TARTRATE 5 MG/5 ML VIAL IVPUSH PRN (09:35)
[2022-12-20] MEDS: CALCIUM 500MG/VIT-D 200 UNITS COMBO TABLET (FP) PO SCH ×2 (11:03→21:51)
[2022-12-20] MEDS: RIVAROXABAN 20 MG TABLET PO SCH (17:43)
[2022-12-20] MEDS ORDERED: LORazepam 2 MG/ML SDV VIAL IVPUSH ONE (21:50)
[2022-12-21] MEDS: CARBIDOP 37.5MG/LEVODOPA 150MG/ENTACAPONE 200MG TABLET PO SCH ×4 (06:18→17:56)
[2022-12-21] MEDS: POLYETHYLENE GLYCOL (HEALTHYLAX) 3350 17 GM PACKET PO SCH ×2 (09:24→21:43)
[2022-12-21] MEDS: CEFTRIAXONE 1 GM in DEXTROSE 5%-WATER - 50 ML IVPB SCH (09:24)
[2022-12-21] MEDS: PANTOPRAZOLE 40 MG TABLET PO SCH (09:25)
[2022-12-21] MEDS: CALCIUM 500MG/VIT-D 200 UNITS COMBO TABLET (FP) PO SCH ×2 (09:25→21:44)
[2022-12-21] MEDS: RIVAROXABAN 20 MG TABLET PO SCH (17:58)
[2022-12-22] MEDS: CARBIDOP 37.5MG/LEVODOPA 150MG/ENTACAPONE 200MG TABLET PO SCH ×4 (05:46→17:03)
[2022-12-22] MEDS: ACETAMINOPHEN 325 MG TABLET (FP) PO PRN ×2 (06:55→22:23)
[2022-12-22] MEDS: POLYETHYLENE GLYCOL (HEALTHYLAX) 3350 17 GM PACKET PO SCH ×2 (09:55→22:24)
[2022-12-22] MEDS: CEFTRIAXONE 1 GM in DEXTROSE 5%-WATER - 50 ML IVPB SCH (09:56)
[2022-12-22] MEDS: PANTOPRAZOLE 40 MG TABLET PO SCH (09:56)
[2022-12-22] MEDS: CALCIUM 500MG/VIT-D 200 UNITS COMBO TABLET (FP) PO SCH ×2 (09:56→22:24)
[2022-12-22] MEDS: RIVAROXABAN 20 MG TABLET PO SCH (17:03)
[2022-12-22] MEDS: MELATONIN 5 MG TABLETS PO PRN (22:23)
[2022-12-23] MEDS: CARBIDOP 37.5MG/LEVODOPA 150MG/ENTACAPONE 200MG TABLET PO SCH ×4 (05:17→17:12)
[2022-12-23] MEDS: CEFTRIAXONE 1 GM in DEXTROSE 5%-WATER - 50 ML IVPB SCH (09:29)
[2022-12-23] MEDS: PANTOPRAZOLE 40 MG TABLET PO SCH (09:29)
[2022-12-23] MEDS: CALCIUM 500MG/VIT-D 200 UNITS COMBO TABLET (FP) PO SCH ×2 (09:29→21:29)
[2022-12-23] MEDS: POLYETHYLENE GLYCOL (HEALTHYLAX) 3350 17 GM PACKET PO SCH ×2 (09:29→21:29)
[2022-12-23] MEDS: RIVAROXABAN 20 MG TABLET PO SCH (17:12)
[2022-12-23] MEDS: MELATONIN 5 MG TABLETS PO PRN (21:29)
[2022-12-24] MEDS: ACETAMINOPHEN 325 MG TABLET (FP) PO PRN ×2 (04:08→09:17)
[2022-12-24] MEDS: CARBIDOP 37.5MG/LEVODOPA 150MG/ENTACAPONE 200MG TABLET PO SCH ×4 (06:13→17:05)
[2022-12-24] MEDS: POLYETHYLENE GLYCOL (HEALTHYLAX) 3350 17 GM PACKET PO SCH ×2 (09:17→21:33)
[2022-12-24] MEDS: CEFTRIAXONE 1 GM in DEXTROSE 5%-WATER - 50 ML IVPB SCH (09:18)
[2022-12-24] MEDS: CALCIUM 500MG/VIT-D 200 UNITS COMBO TABLET (FP) PO SCH ×2 (09:18→21:33)
[2022-12-24] MEDS: PANTOPRAZOLE 40 MG TABLET PO SCH (09:18)
[2022-12-24] MEDS: RIVAROXABAN 20 MG TABLET PO SCH (17:05)
[2022-12-25] MEDS: ACETAMINOPHEN 325 MG TABLET (FP) PO PRN (04:10)
[2022-12-25] MEDS: CARBIDOP 37.5MG/LEVODOPA 150MG/ENTACAPONE 200MG TABLET PO SCH ×4 (06:18→17:48)
[2022-12-25] MEDS: PANTOPRAZOLE 40 MG TABLET PO SCH (09:31)
[2022-12-25] MEDS: CALCIUM 500MG/VIT-D 200 UNITS COMBO TABLET (FP) PO SCH ×2 (09:31→21:19)
[2022-12-25] MEDS: CEFTRIAXONE 1 GM in DEXTROSE 5%-WATER - 50 ML IVPB SCH (09:32)
[2022-12-25] MEDS: POLYETHYLENE GLYCOL (HEALTHYLAX) 3350 17 GM PACKET PO SCH ×2 (09:33→21:19)
[2022-12-25] MEDS: RIVAROXABAN 20 MG TABLET PO SCH (17:48)
[2022-12-26] MEDS: CARBIDOP 37.5MG/LEVODOPA 150MG/ENTACAPONE 200MG TABLET PO SCH ×4 (05:25→18:12)
[2022-12-26] MEDS: POLYETHYLENE GLYCOL (HEALTHYLAX) 3350 17 GM PACKET PO SCH ×2 (09:40→21:08)
[2022-12-26] MEDS: CEFTRIAXONE 1 GM in DEXTROSE 5%-WATER - 50 ML IVPB SCH (09:40)
[2022-12-26] MEDS: CALCIUM 500MG/VIT-D 200 UNITS COMBO TABLET (FP) PO SCH ×2 (09:40→21:08)
[2022-12-26] MEDS: PANTOPRAZOLE 40 MG TABLET PO SCH (09:40)
[2022-12-26] MEDS: RIVAROXABAN 20 MG TABLET PO SCH (18:12)
[2022-12-26] MEDS: ACETAMINOPHEN 325 MG TABLET (FP) PO PRN (21:08)
[2022-12-26] MEDS: MELATONIN 5 MG TABLETS PO PRN (21:08)
[2022-12-27] MEDS: CARBIDOP 37.5MG/LEVODOPA 150MG/ENTACAPONE 200MG TABLET PO SCH ×3 (05:37→13:49)
[2022-12-27] MEDS: PANTOPRAZOLE 40 MG TABLET PO SCH (09:00)
[2022-12-27] MEDS: CALCIUM 500MG/VIT-D 200 UNITS COMBO TABLET (FP) PO SCH (09:00)
[2022-12-27] MEDS: POLYETHYLENE GLYCOL (HEALTHYLAX) 3350 17 GM PACKET PO SCH (09:00)
[2022-12-27] MEDS: CEFTRIAXONE 1 GM in DEXTROSE 5%-WATER - 50 ML IVPB SCH (09:03)
[2022-12-27 09:32] VITALS: RESP 18
[2022-12-27 14:05] VITALS: BP 94/45; PULSE 59; TEMP 97.7
[2022-12-27] MEDS: RIVAROXABAN 20 MG TABLET PO SCH (16:47)
== END 2022-12-27 17:26 | DRG 551 ==
LOC: JER 09:00 → JERBED 13:18 → J4S 12-20 19:34
PROVIDERS: ADMIT Family Medicine; ATTEND Family Medicine
DX: S32.019A Unspecified fracture of first lumbar vertebra, initial encounter for closed fracture (principal); G92.8 Other toxic encephalopathy; M80.00XA Age-related osteoporosis with current pathological fracture, unspecified site, initial encounter for fracture; N39.0 Urinary tract infection, site not specified; G20.A1 Parkinson's disease without dyskinesia, without mention of fluctuations; I11.0 Hypertensive heart disease with heart failure; I48.91 Unspecified atrial fibrillation; I50.9 Heart failure, unspecified; K21.9 Gastro-esophageal reflux disease without esophagitis; W19.XXXA Unspecified fall, initial encounter; Y93.9 Activity, unspecified; Y92.89 Other specified places as the place of occurrence of the external cause; Y99.9 Unspecified external cause status; B96.20 Unspecified Escherichia coli [E. coli] as the cause of diseases classified elsewhere; I44.7 Left bundle-branch block, unspecified; J44.9 Chronic obstructive pulmonary disease, unspecified; R55 Syncope and collapse; T42.4X5A Adverse effect of benzodiazepines, initial encounter
CPT/HCPCS: 0241U-QW; 36415; 70450-TC; 71045-TC-FY; 72125-TC; 72131-TC; 72170-TC-FY; 73030-TC-RT-FY; 73521-TC-FY; 80053; 81003; 83735; 84443; 84484; 85025; 87086; 87186; 93005; 93010; 95816; 97116-GP; 97161-GP; 99285-25

== ENCOUNTER 2023-03-16 17:38 | Emergency (ER) | payer OTHER ==
[2023-03-16 17:47] VITALS: BP 141/74; PULSE 56; RESP 18; TEMP 98.2; BMI 28.3
== END 2023-03-16 21:00 | disposition left against medical advice (07) ==
LOC: JER 17:38
DX: K64.9 Unspecified hemorrhoids (principal)
CPT/HCPCS: 99281-25

== ENCOUNTER 2023-06-29 18:25 | Emergency (ER) | payer OTHER ==
[2023-06-29 18:54] VITALS: TEMP 99.7; BMI 28.0
[2023-06-29] MEDS ORDERED: DIPHTH,PERTUSS(ACELL),TET 0.5 ML DISP.SYRIN IM ONE (21:57)
[2023-06-29] MEDS: DIPHTH,PERTUSS(ACELL),TET 0.5 ML DISP.SYRIN IM ONE (22:00)
[2023-06-29 22:36] VITALS: BP 145/92; PULSE 120; RESP 18
== END 2023-06-29 22:37 | disposition home or self-care (01) ==
LOC: JER 18:25
PROC: 3E0234Z Introduction of Serum, Toxoid and Vaccine into Muscle, Percutaneous Approach (ICD-10-PCS; principal; 2023-06-29)
DX: S50.311A Abrasion of right elbow, initial encounter (principal); W07.XXXA Fall from chair, initial encounter
CPT/HCPCS: 70450-TC; 70486-TC; 72125-TC; 90471; 90715; 93005; 93010; 99284-25